=== PATIENT | male | born 1940 | race Caucasian/White ===

== ENCOUNTER 2021-10-06 06:39 | Day surgery (SDC) | payer OTHER ==
[2021-10-06] MEDS ORDERED: CEFAZOLIN/NS 1gm 1 GM/50 ML BAG ONE (06:42)
[2021-10-06] MEDS ORDERED: Ringers Lactate 1,000 ML IV ONE (06:42)
[2021-10-06] MEDS ORDERED: LIDOCAINE 2% MPF 5 ML VIAL ONE (07:04)
[2021-10-06] MEDS ORDERED: FENTANYL CITR 100 MCG/2 ML ONE (07:04)
[2021-10-06] MEDS ORDERED: propofoL 200 MG/20 ML VIAL IV ONE (07:05)
[2021-10-06] MEDS ORDERED: BUPIVACAINE 0.25% PF 10 ML VIAL ONE (07:19)
[2021-10-06 07:57] LABS: BUN Blood Urea Nitrogen 19 mg/dL (7-18); Bicarbonate 26 mmol/L (21-32); Glucose Level 141 mg/dL (74-106); Potassium 3.9 mmol/L (3.5-5.1); Sodium Level 139 mmol/L (136-145)
[2021-10-06] MEDS ORDERED: ONDANSETRON 4 MG/2 ML VIAL ONE (08:34)
[2021-10-06] MEDS ORDERED: KETOROLAC 30 MG/ML INJ ONE (08:34)
[2021-10-06] MEDS ORDERED: SODIUM HYPOCHLORITE 0.25% 473 ML ONE (08:39)
--- NOTE | 2021-10-06 08:51 | P.OP ---
Preoperative diagnosis: LEFT posterior Arm infected sebacous cyst, 3 back cysts Postoperative diagnosis: LEFT posterior Arm infected sebacous cyst, 3 back cysts Primary procedure: Wide Excision of LEFT posterior Arm infected sebacous cyst, 3 back cysts Anesthesia: GETA + Local Estimated blood loss: < 5cc Specimen: LEFT posterior Arm infected sebacous cyst, 3 back left, right, mid upper Findings: 8x5x1.5 cm LEFT arm cyst to tricept muscle, 3 SQ back cysts Complications: None Transferred to: Recovery Room Condition: Good
[2021-10-06 09:28] VITALS: O2SAT 99
[2021-10-06] MEDS ORDERED: HYDROCODONE/APAP 5/325 MG TAB ONE (09:52)
[2021-10-06 10:45] VITALS: BP 134/70; TEMP 98.1
--- NOTE | 2021-10-06 11:10 | OP ---
Date of Procedure: 10/06/2021 Surgeon: Merlin Garcias MD, Preoperative Diagnoses: 1.Left posterior arm infected sebaceous cyst. 2.Infected sebaceous cyst of the upper back x3. Postoperative Diagnoses: 1.Left posterior arm infected sebaceous cyst. 2.Infected sebaceous cyst of the upper back x3. Procedures Performed: Wide local excision of left posterior upper arm infected sebaceous cyst and wi de local excision of three upper back infected sebaceous cysts. Anesthesia: General endotracheal plus local with 0.25% Marcaine. Estimated Blood Loss: Less than 5 mL. Specimen: Left posterior arm sebaceous cyst. Three upper back infected sebaceous cyst, labeled as l eft upper, mid upper, and right upper back. Findings: 1.An 8 cm x 5 cm x 1.5 cm left arm infected sebaceous cyst extending up to the fascia of the triceps muscle. 2.Left upper back infected sebaceous cyst. 3.Mid upper back infected sebaceous cyst 1 cm x 1.5 cm x 1 cm for all of these, right upper back was 1 cm x 1 cm x 1 cm. Complications: None. Disposition: The patient was transferred to recovery room in good condition. Procedure In Detail: After informed was obtained, the patient was brought to the operating room, pre pped and draped in the usual sterile fashion. After adequate anesthesia was achieved, I focused on t he three upper back cyst. All these were anesthetized with 0.25% Marcaine. Elliptical incisions wer e taken around all three of these cysts using a 15 blade down through subcutaneous tissues. Dissecti on continued down using electrocautery to remove the cyst in its entirety. Infected sebaceous materi al was noted. These specimens were sent off and labeled individually at this point. All skin incisi ons at this point were inspected and hemostasis was achieved with electrocautery. The area was copio usly irrigated and closed with a combination of interrupted and vertical mattress sutures with 2-0 ny jerilyn suture with good approximation of the tissues and a sterile dressing placed over top. I then tur paulette my attention to the left posterior arm infected sebaceous cyst, which was approximately 8 cm x 5 cm. An elliptical incision was taken down as this was draining abscess material at this point. Cult ures were sent for both aerobic and anaerobic speciation at this time. I then proceeded to dissect d own circumferentially. There was evidence of multiple prior ruptures as the sebaceous material was e ncased with an abscess material and was partially fluidic. After removing this down through subcutan eous tissues, it extended up to the triceps and posterior deltoid muscle. All necrotic tissue was re moved. The hemostasis was achieved with electrocautery and I irrigated the area copiously at this po int. I, after achieving hemostasis, then packed the wound with Dakin-soaked Kerlix and a sterile harley ssing placed over top. The patient tolerated the procedure without any complication and transferred to PACU in good condition. All counts were correct at the end of the case. CARMEN/GOMEZ Voice ID: [id number] Report ID: [id number]
--- NOTE | 2021-10-06 13:16 | EKG ---
Test Date: 2021-10-06 Test Time: 07:21:39 Java Security Engineer: KELVIN MEASUREMENT RESULTS: Intervals: Rate: 88 MO: 160 QRSD: 76 QT: 348 QTc: 421 [place]: P: 71 MO: 160 QRS: 28 T: 39 INTERPRETIVE STATEMENTS: Normal sinus rhythm Minimal voltage criteria for LVH, may be normal variant ST elevation, consider lateral injury or acute infarct ACUTE [place] Abnormal ECG No previous ECG available for comparison Electronically Signed On 10-06-21 13:16:00 MOVING VAN DRIVER by Gustavo Nevarez
== END 2021-10-06 10:37 | disposition home or self-care (01) ==
LOC: OR 06:39
PROVIDERS: ATTEND Surgery
PROC: 0JB70ZZ Excision of Back Subcutaneous Tissue and Fascia, Open Approach (ICD-10-PCS; 2021-10-06)
PROC: 0JB70ZZ Excision of Back Subcutaneous Tissue and Fascia, Open Approach (ICD-10-PCS; 2021-10-06)
PROC: 0JB70ZZ Excision of Back Subcutaneous Tissue and Fascia, Open Approach (ICD-10-PCS; 2021-10-06)
PROC: 0JBF0ZZ Excision of Left Upper Arm Subcutaneous Tissue and Fascia, Open Approach (ICD-10-PCS; principal; 2021-10-06 07:30)
DX: L72.0 Epidermal cyst (principal); L08.9 Local infection of the skin and subcutaneous tissue, unspecified; Z20.822 Contact with and (suspected) exposure to COVID-19
CPT/HCPCS: 93005; 87070; 80048; 36415; 87205; 88304 ×2; 87075; 11406; 11401 ×3; U0003; J2704; J3010; J0690; J7120; J2405; 88305

== ENCOUNTER 2022-01-08 09:42 | Emergency (ER) | payer OTHER ==
[2022-01-08] MEDS ORDERED: LIDOCAINE 1% W/EPI 1:100,000 MDV 50 ML VIAL ONE (09:59)
--- NOTE | 2022-01-08 10:43 | RAD REPORT ---
EXAM DESCRIPTION: CT - [id number] - 01/08/2022 10:24 am CLINICAL HISTORY: PAINfall, facial laceration, headache, neck pain COMPARISON: No comparisons TECHNIQUE: Axial 5 mm thick images of the head were obtained. Axial 2 mm thick images of the cervic al spine were obtained with sagittal and coronal reconstruction images generated and reviewed. All CT scans are performed using dose optimization technique as appropriate and may include automated exposure control or mA/KV adjustment according to patient size. FINDINGS: No intracranial hemorrhage, mass, edema or acute intracranial finding. No suspicion for ac tonto apache infarction. No cortical edema or sulcal effacement. Mild to moderate for age atrophy present with ventricles in proportion. Chronic ischemic change in the cerebral white matter is mild. Mastoid air cells and paranasal sinuses are clear. No globe or orbit abnormality seen. Soft tissue injury present at the tip of the nose. Nondisplaced nasal bone fracture is suspected. There is significant left dev iation of the nasal septum without acute fracture finding. Cervical body height and alignment are normal. All disc levels from C3-4 through C7-T1 show loss in h eight. Endplate spurring changes are present throughout the same span of vertebrae. Facet joint degen erative changes are present. No fracture or acute bony abnormality. Moderate severity right foraminal stenosis at C2-3 and C3-4. Moderately severe left-side and moderate right-sided foraminal stenosis a t C4-5 and C5-6. Right greater than left significant foraminal stenosis at C6-7. Central canal detail is inherently limited. No paraspinal mass or hematoma. IMPRESSION: No hemorrhage, edema or acute intracranial finding. Soft tissue injury at the tip of the nose with probable nondisplaced nasal bone fracture. Advanced cervical spondylosis changes spanning C3-4 through C6-7. No acute cervical finding. Negative CT cervical spine examination for acute or significant finding.
[2022-01-08 11:01] LABS: Absolute Lymphocytes (CBC) 2.4 K/uL (0.7-4.9); Hematocrit 35.5 % (39.6-49.0); Lymphocytes % 28.7 % (15.3-44.8); RBC Red Blood Cell Count 4.25 M/uL (4.33-5.43)
[2022-01-08 11:03] LABS: Protime INR 1.08
--- NOTE | 2022-01-08 11:13 | RAD REPORT ---
EXAM DESCRIPTION: RAD - Chest Single View - 01/08/2022 11:00 am CLINICAL HISTORY: COUGH COMPARISON: Two view chest December 25 TECHNIQUE: AP portable chest image was obtained 01/08/2022 11:00 am . FINDINGS: Chronic left lung field interstitial opacification again noted. This is not significantly different when adjusting for the AP technique and slightly lower lung volume. Right apical pleural th ickening is present. Right hemithorax volume is decreased relative to the left. The trachea is in the midline. Medial right base opacification present partially obscuring the right heart border. This is similar to the prior imaging. The mass lesion in the lung is possible. Prominent pericardial fat or hiatal hernia can have a similar appearance. No remote imaging available to establish long-term stabi lity. Upper lobe vasculature within normal limits. No measurable pleural effusion and no pneumothorax . No acute bony abnormality seen. No acute aortic findings suspected. IMPRESSION: Chronic interstitial lung pattern not substantially different from short interval Februa 7 imaging. Interstitial infiltrate or edema could be masked in this setting, particularly in the mid to lower ri ght lung field. Mass density along the right heart border could be mass lesion, right middle lobe atelectasis, promin ent pericardial fat, chamber enlargement or even hiatal hernia. No long-term comparison available for the right lung base finding. Follow-up CT chest imaging could b e utilized to excluded mass lesion.
[2022-01-08] MEDS ORDERED: CEFAZOLIN SODIUM 1 GM/VIAL ONE (11:17)
[2022-01-08] MEDS ORDERED: NA CHLORIDE 0.9% 100 ML IV ONE (11:17)
[2022-01-08] MEDS ORDERED: TETANUS & DIPHTHERIA TOX,ADULT 0.5 ML VIAL ONE (11:17)
[2022-01-08 11:30] LABS: Urine Blood Negative (Negative); Urine Glucose Negative (Negative); Urine Protein 1+ (Negative); Urine Specific Gravity 1.025 (1.005-1.030)
[2022-01-08 11:31] LABS: Albumin 2.9 g/dL (3.4-5.0); Bilirubin Direct 0.1 mg/dL (0-0.2); Bilirubin Total 0.3 mg/dL (0.2-1.0); Magnesium 2.2 mg/dL (1.8-2.4); Potassium 3.7 mmol/L (3.5-5.1); Protein, Total 7.4 g/dL (6.4-8.2); Troponin High Sensitivity 6.9 pg/mL (<58.9)
[2022-01-08] MEDS ORDERED: ACETAMINOPHEN 325 MG TABLET ONE (11:41)
--- NOTE | 2022-01-08 11:48 | EDPHYS ---
Physician Documentation [facility] Name: Khang Aguilar Age: 81 yrs Sex: Male : 1940 Arrival Date: 01/08/2022 Time: 09:44 Bed 19 Private MD: ED Physician Reinaldo Gill HPI: 01/08 11:35 This 81 yrs old Male presents to ER via Wheelchair with complaints of Fall ellis Injury, Laceration To Scalp/Face. 11:35 Details of fall: The patient fell from an upright position, while walking. Onset: The ellis symptoms/episode began/occurred just prior to arrival. Associated injuries: The patient sustained injury to the head, nose and mouth, contusion, laceration, painful injury, swelling. Severity of symptoms: At their worst the symptoms were mild, in the emergency department the symptoms are unchanged. The patient has not experienced similar symptoms in the past. Historical: - Allergies: 09:53 No Known Allergies; ph - Immunization history:: Adult Immunizations up to date, Client reports receiving the 2nd dose of the Covid vaccine, Last tetanus immunization: up to date. - Social history:: Smoking status: Patient denies any tobacco usage or history of. ROS: 11:36 Constitutional: Negative for fever, chills, and weight loss, Eyes: Negative for injury, ellis pain, redness, and discharge, Neck: Negative for injury, pain, and swelling, Cardiovascular: Negative for chest pain, palpitations, and edema, Respiratory: Negative for shortness of breath, cough, wheezing, and pleuritic chest pain, Abdomen/GI: Negative for abdominal pain, nausea, vomiting, diarrhea, and constipation, Back: Negative for injury and pain, : Negative for injury, bleeding, discharge, and swelling, MS/Extremity: Negative for injury and deformity, Neuro: Negative for headache, weakness, numbness, tingling, and seizure, Psych: Negative for depression, anxiety, suicide ideation, homicidal ideation, and hallucinations, Allergy/Immunology: Negative for hives, rash, and allergies, Endocrine: Negative for neck swelling, polydipsia, polyuria, polyphagia, and marked weight changes. 11:36 ENT: Positive for nose bleed, rhinorrhea, sinus congestion. Exam: 11:36 Constitutional: This is a well developed, well nourished patient who is awake, alert, ellis and in no acute distress. Eyes: Pupils equal round and reactive to light, extra-ocular motions intact. Lids and lashes normal. Conjunctiva and sclera are non-icteric and not injected. Cornea within normal limits. Periorbital areas with no swelling, redness, or edema. ENT: Nares patent. No nasal discharge, no septal abnormalities noted. Tympanic membranes are normal and external auditory canals are clear. Oropharynx with no redness, swelling, or masses, exudates, or evidence of obstruction, uvula midline. Mucous membranes moist. Neck: Trachea midline, no thyromegaly or masses palpated, and no cervical lymphadenopathy. Supple, full range of motion without nuchal rigidity, or vertebral point tenderness. No Meningismus. Chest/axilla: Normal chest wall appearance and motion. Nontender with no deformity. No lesions are appreciated. Cardiovascular: Regular rate and rhythm with a normal S1 and S2. No gallops, murmurs, or rubs. Normal PMI, no JVD. No pulse deficits. Respiratory: Lungs have equal breath sounds bilaterally, clear to auscultation and percussion. No rales, rhonchi or wheezes noted. No increased work of breathing, no retractions or nasal flaring. Abdomen/GI: Soft, non-tender, with normal bowel sounds. No distension or tympany. No guarding or rebound. No evidence of tenderness throughout. Back: No spinal tenderness. No costovertebral tenderness. Full range of motion. Male : Normal genitalia with no discharge or lesions. Skin: Warm, dry with normal turgor. Normal color with no rashes, no lesions, and no evidence of cellulitis. Neuro: Awake and alert, GCS 15, oriented to person, place, time, and situation. Cranial nerves II-XII grossly intact. Motor strength 5/5 in all extremities. Sensory grossly intact. Cerebellar exam normal. Normal gait. Psych: Awake, alert, with orientation to person, place and time. Behavior, mood, and affect are within normal limits. 11:36 Head/face: Noted is contusion, a laceration(s), that is deep, 2 cm(s), of the lower lip and lower vermilion border, swelling, that is mild, of the nose and mouth. 11:43 ECG was reviewed by the Attending Physician. [facility] Vital Signs: 09:53 BP 161 / 97; Pulse 86; Resp 18; Temp 97.1; Pulse Ox 97% on R/A; ph 11:15 BP 171 / 81; Pulse 85; ll1 12:45 BP 177 / 67; Pulse 81; Resp 17; Pulse Ox 97% on R/A; Pain 5/10; ll1 [place]a Score: 10:12 Eye Response: spontaneous(4). Verbal Response: confused(4). Motor Response: obeys ll1 commands(6). Total: 14. 11:36 Eye Response: spontaneous(4). Verbal Response: oriented(5). Motor Response: obeys ellis commands(6). Total: 15. Trauma Score (Adult): 10:12 Eye Response: spontaneous(1); Verbal Response: confused(1); Motor Response: obeys ll1 commands(2); Systolic BP: > 89 mm Hg(4); Respiratory Rate: 10 to 29 per min(4); Reid Score: 14; Trauma Score: 12 Laceration: 11:36 Wound Repair of 2cm ( 0.8in ) subcutaneous laceration to lower lip. Irregularly ellis shaped.. Distal neuro/vascular/tendon intact. Anesthesia: Local anesthetic administered with 5 mls of 1% lidocaine w/ Epi. Wound prep: Moderate cleansing by me. Skin closed with 1 5-0 Prolene using interrupted sutures and sterile technique. Mucosal layer closed with 3 5-0 Vicryl using interrupted sutures and sterile technique. Dressed with Neosporin. Patient tolerated well. MDM: 10:09 Patient medically screened. ellis 11:36 Differential diagnosis: Contusion of Hematoma on Laceration of Intracranial bleed- ellis Concussion. Differential diagnosis: abrasion, closed head injury, contusion, fracture, laceration, multiple trauma. Data reviewed: vital signs, nurses notes, lab test result(s), EKG, radiologic studies, CT scan, plain films. Data interpreted: nurse monitoring: rate is 86 beats/min, rhythm is regular, Pulse oximetry: on room air is 97 %. Test interpretation: by ED physician or midlevel provider: ECG, plain radiologic studies. Counseling: I had a detailed discussion with the patient and/or guardian regarding: the historical points, exam findings, and any diagnostic results supporting the discharge/admit diagnosis, lab results, radiology results, the need for outpatient follow up, for definitive care, a family practitioner. 01/08 10:19 Order name: Basic Metabolic Panel; Complete Time: 11:34 ellis 01/08 10:19 Order name: CBC with Diff; Complete Time: 11:34 [facility] 01/08 10:19 Order name: LFT's; Complete Time: 11:34 [facility] 01/08 10:19 Order name: Magnesium; Complete Time: 11:34 [facility] 01/08 10:19 Order name: NT PRO-BNP; Complete Time: 11:34 [facility] 01/08 10:19 Order name: PT-INR; Complete Time: 11:34 [facility] 01/08 10:19 Order name: Troponin HS; Complete Time: 11:34 [facility] 01/08 10:19 Order name: XRAY Chest (1 view); Complete Time: 11:34 [facility] 01/08 10:19 Order name: CT Head C Spine; Complete Time: 11:34 [facility] 01/08 10:46 Order name: CT Chest For PE Angio [facility] 01/08 11:30 Order name: Urine Dipstick-Ancillary; Complete Time: 11:34 EDAL 01/08 10:19 Order name: EKG; Complete Time: 10: [facility] 01/08 10:19 Order name: Cardiac monitoring; Complete Time: 10: [facility] 01/08 10:19 Order name: EKG - Nurse/Tech; Complete Time: 10: [facility] 01/08 10:19 Order name: IV Saline Lock; Complete Time: : [facility] 01/08 10:19 Order name: Labs collected and sent; Complete Time: : ellis 01/08 10:19 Order name: O2 Per Protocol; Complete Time: :01/08 10:19 Order name: O2 Sat Monitoring; Complete Time: : ellis 01/08 10:19 Order name: Dressing - Wound; Complete Time: : ellis 01/08 10:19 Order name: Gloves, Sterile; Complete Time: : ellis 01/08 10:19 Order name: Prolene, Sutures; Complete Time: : [facility] 01/08 10:19 Order name: Setup Suture Tray; Complete Time: : ellis 01/08 10:19 Order name: Vicryl, Sutures; Complete Time: : ellis 01/08 10:20 Order name: Ice pack; Complete Time: 10:01/08 10:20 Order name: Urine Dipstick-Ancillary (obtain specimen); Complete Time: 11:32 ellis EC:43 Rate is 79 beats/min. Rhythm is regular. QRS [place] is Normal. LA interval is normal. QRS ellis interval is normal. QT interval is normal. No Q waves. T waves are Normal. No ST changes noted. Clinical impression: NSR w/ Non-specific ST/T Changes, LVH, and No evidence of ischemia. Interpreted by me. Reviewed by me. 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 Exp: ll1 04/07/2023. Lot #: [id number]. } Route: IM; Site: right deltoid; 12:55 Follow up: Response: No adverse reaction ll1 11:40 Drug: Tylenol 650 mg Route: PO; ph 12:55 Follow up: Response: No adverse reaction ll1 12:13 Drug: LevOfloxacin 500 mg Route: PO; iw 12:55 Follow up: Response: No adverse reaction ll1 Disposition Summary: 01/08/22 11:48 Discharge Ordered Location: Home ellis Problem: new ellis Symptoms: have improved ellis Condition: Stable ellis Diagnosis - Fall on same level, unspecified ellis - Laceration without foreign body of other part of head - lip, lower ellis - Laceration without foreign body of right hand - avulsion ellis - Malignant neoplasm of lower lobe, right bronchus or lung ellis - Malignant pleural effusion - right ellis Followup: ellis - With: Private Physician - When: 2 - 3 days - Reason: Recheck today's complaints, Continuance of care, Re-evaluation by your physician Followup: ellis - With: Valentino Chew MD - When: 2 - 3 days - Reason: Recheck today's complaints, Re-evaluation by your physician Followup: ellis - With: Gerson Mccurdy MD - When: 2 - 3 days - Reason: Recheck today's complaints, Re-evaluation by your physician Discharge Instructions: - Discharge Summary Sheet ellis - Head Injury, Adult ellis - Fall Prevention in the Home, Adult ellis - Laceration Care, Adult ellis - Mouth Laceration ellis - Pleural Effusion ellis - Mouth Laceration, [id number] ellis - Laceration Care, Adult, [id number] ellis - Head Injury, Adult, [id number] ellis - Lung Mass [facility] Forms: - Medication Reconciliation Form ellis - Thank You Letter ellis - Antibiotic Education [facility] - Prescription Opioid Use [facility] Prescriptions: - levofloxacin 500 mg Oral Tablet - take 1 tablet by ORAL route once daily for 7 days; 7 tablet; Refills: 0, ellis Product Selection Permitted Signatures: Dispatcher [employer] EDReinaldo Orozco MD MD cha Williams, Irene RN Fabiana Bradford RN RN Meagan Oliver RN RN ll1
--- NOTE | 2022-01-08 11:48 | ER ---
Nurse's Notes [facility] Name: Khang Aguilar Age: 81 yrs Sex: Male : 1940 Arrival Date: 01/08/2022 Time: 09:44 Bed 19 Private MD: Diagnosis: Fall on same level, unspecified;Laceration without foreign body of other part of head-lip, lower;Laceration without foreign body of right hand-avulsion;Malignant neoplasm of lower lobe, right bronchus or lung;Malignant pleural effusion-right Presentation: 01/08 09:50 Chief complaint: Bystander saw pt trip and fall in parking lot. Bleeding to nose, ph laceration to lower lip, abrasion to R palm, denies LOC, denies blood thinner use, Pt asked " Where am I?" Informed pt that he was at ED, when asked about why he had come to the hospital today pt states, " Well you know, I don't really know why I was here.". Care prior to arrival: None. Mechanism of Injury: Fall from standing position. Trauma event details: Injury occurred in the [facility], Injury occurred: hospital parking lot. 09:50 Acuity: VANIA 2 ph 09:50 Method Of Arrival: Wheelchair ph 10:13 Coronavirus screen: Vaccine status: Patient reports receiving the 2nd dose of the covid ll1 vaccine. Client denies travel out of the [place] in the last 14 days. At this time, the client does not indicate any symptoms associated with coronavirus-19. Ebola Screen: Patient denies travel to an Ebola-affected area in the 21 days before illness onset. Initial Sepsis Screen: Does the patient meet any 2 criteria? No. Patient's initial sepsis screen is negative. Does the patient have a suspected source of infection? Yes: Skin breakdown/wound. Risk Assessment: Do you want to hurt yourself or someone else? Patient reports no desire to harm self or others. Onset of symptoms was January 08, 2022. Trauma Activation: Alert Physician: ED Physician; Name: ; Notified At: ; Arrived At: Physician: General Surgeon; Name: ; Notified At: ; Arrived At: Physician: Radiology; Name: ; Notified At: ; Arrived At: Physician: Respiratory; Name: ; Notified At: ; Arrived At: Physician: Lab; Name: ; Notified At: ; Arrived At: Historical: - Allergies: 09:53 No Known Allergies; ph - Immunization history:: Adult Immunizations up to date, Client reports receiving the 2nd dose of the Covid vaccine, Last tetanus immunization: up to date. - Social history:: Smoking status: Patient denies any tobacco usage or history of. Screenin:11 Abuse screen: Denies threats or abuse. Nutritional screening: No deficits noted. ll1 Tuberculosis screening: No symptoms or risk factors identified. Fall Risk Secondary diagnosis (15 points) confused. Ambulatory Aid- Crutches/Cane/Walker (15 pts). Gait- Impaired (20 pts.). Mental Status- Overestimates/Forgets Limitations (15 pts.). Total Bower Fall Scale indicates High Risk Score (45 or more points). Fall prevention measures have been instituted. Side Rails Up X 2 Placed Close to Nursing Station Frequent Obs/Assessments Occuring As available patient and family educated on Fall Prevention Program and Strategies. Primary Survey: 10:12 NO uncontrolled hemorrhage observed. A: The patient is alert. Airway: patent, No ll1 supplemental oxygen in use on arrival. Oral cavity: clear, Trachea midline. Breathing/Chest: Respiratory pattern: regular, Respiratory effort: spontaneous, unlabored, Breath sounds: clear. Circulation: Pulses: palpable right radial artery, right dorsalis pedis artery, left radial artery and left dorsalis pedis artery. Disability Alert. Exposure/Environment: There is no evidence of uncontrolled external bleeding. A warming method has been applied: A warm blanket has been provided to the patient. 12:54 Reassessment Breathing/Chest Respiratory pattern Regular Respiratory effort Spontaneous ll1 Unlabored. Assessment: 10:08 General: Appears distressed, Behavior is calm, cooperative, confused. Pain: Complains ll1 of pain in face Quality of pain is described as aching. Neuro: Reports cant remember why he fell, or why he was coming to the hospital. . Cardiovascular: No deficits noted. Respiratory: No deficits noted. GI: denies N/V/D. Derm: laceration right side of lower lip. <2 cm laceration to inner lip. <1 cm laceration right lower outer lip. Abrasions to nose and R hand. No tenderness to hands although there is bruising to thumb areas. 11:05 Reassessment: No changes from previously documented assessment. Patient and/or family ll1 updated on plan of care and expected duration. Pain level reassessed. Patient is alert, oriented x 3, equal unlabored respirations, skin warm/dry/pink. 12:00 Reassessment: No changes from previously documented assessment. Patient and/or family ll1 updated on plan of care and expected duration. Pain level reassessed. Patient is alert, oriented x 3, equal unlabored respirations, skin warm/dry/pink. 12:50 Reassessment: No changes from previously documented assessment. Patient and/or family ll1 updated on plan of care and expected duration. Pain level reassessed. Patient is alert, oriented x 3, equal unlabored respirations, skin warm/dry/pink. Vital Signs: 09:53 BP 161 / 97; Pulse 86; Resp 18; Temp 97.1; Pulse Ox 97% on R/A; ph 11:15 BP 171 / 81; Pulse 85; ll1 12:45 BP 177 / 67; Pulse 81; Resp 17; Pulse Ox 97% on R/A; Pain 5/10; ll1 Reid Coma Score: 10:12 Eye Response: spontaneous(4). Verbal Response: confused(4). Motor Response: obeys ll1 commands(6). Total: 14. 11:36 Eye Response: spontaneous(4). Verbal Response: oriented(5). Motor Response: obeys ellis commands(6). Total: 15. Trauma Score (Adult): 10:12 Eye Response: spontaneous(1); Verbal Response: confused(1); Motor Response: obeys ll1 commands(2); Systolic BP: > 89 mm Hg(4); Respiratory Rate: 10 to 29 per min(4); Reid Score: 14; Trauma Score: 12 ED Course: 09:44 Patient arrived in ED. mr 09:48 Meagan Castaneda, RN is Primary Nurse. ll1 09:48 Arm band placed on Patient placed in an exam room, on a stretcher. ll1 09:53 Triage completed. ph 10:09 Reinaldo Gill MD is Attending Physician. ellis 10:13 Assist provider with laceration repair. ll1 10:14 Patient has correct armband on for positive identification. Bed in low position. Call ll1 light in reach. Side rails up X2. Pulse ox on. NIBP on. 10:14 Patient maintains SpO2 saturation greater than 95% on room air. Thermoregulation: warm ll1 blanket given to patient. 10:24 CT Head C Spine In Process Unspecified. EDMS 11:00 XRAY Chest (1 view) In Process Unspecified. EDMS 11:27 CT Chest For PE Angio In Process Unspecified. EDMS 11:48 Valentino Chew MD is Referral Physician. ellis 11:51 Gerson Mccurdy MD is Referral Physician. ellis 12:54 IV discontinued, intact, bleeding controlled, No redness/swelling at site. Pressure ll1 dressing applied. Administered Medications: 10:00 Drug: Lidocaine-Epinephrine -1%: (1:100,000) 5 ml Volume: 20 ml; Route: Infiltration; ll1 10:23 Follow up: Response: No adverse reaction ll1 11:40 Drug: Ancef (cefazolin) 1 grams Route: IVPB; Site: right forearm; ll1 12:50 Follow up: Response: No adverse reaction; IV Status: Completed infusion; IV Intake: ll1 100ml 11:40 Drug: Tetanus-Diphtheria Toxoid Adult 0.5 ml {Medical Records Analyst: [employer]. Exp: ll1 04/07/2023. Lot #: [id number]. } Route: IM; Site: right deltoid; 12:55 Follow up: Response: No adverse reaction ll1 11:40 Drug: Tylenol 650 mg Route: PO; ph 12:55 Follow up: Response: No adverse reaction ll1 12:13 Drug: LevOfloxacin 500 mg Route: PO; iw 12:55 Follow up: Response: No adverse reaction ll1 Intake: 12:50 IV: 100ml; Total: 100ml. ll1 12:55 PO: 150ml; Total: 250ml. ll1 Output: 12:55 Urine: 500ml; Total: 500ml. ll1 Outcome: 11:48 Discharge ordered by . ellis 12:51 Patient left the ED. ll1 12:54 Discharged to home ambulatory. ll1 12:54 Condition: stable 12:54 Discharge instructions given to patient, family, Instructed on discharge instructions, follow up and referral plans. medication usage, wound care, Demonstrated understanding of instructions, follow-up care, medications, wound care, Prescriptions given X 1. 12:55 Patient's length of stay in the Emergency Department was greater than 2 hours. ll1 Signatures: Dispatcher [employer] Reinaldo Brown MD MD cha Rivera, Gemini Fry, Fabiana Bradford RN, RN RN ph Lewis, Lynsay, RN RN 1
--- NOTE | 2022-01-08 11:50 | RAD REPORT ---
EXAM DESCRIPTION: CT - Chest For Pe Angio - 01/08/2022 11:26 am CLINICAL HISTORY: Chest pain;Dyspnea COMPARISON: Chest Single View dated 01/08/2022 TECHNIQUE: Dynamically enhanced 3 mm thick images of the chest were obtained during administration o f approximately 150mL Isovue 370 IV contrast. Coronal and oblique MIP reconstruction images were gene rated and reviewed. Exam utilizes a protocol to evaluate the pulmonary arterial tree. All CT scans are performed using dose optimization technique as appropriate and may include automated exposure control or mA/KV adjustment according to patient size. FINDINGS: A small linear filling defect is present in a segmental branch of the right lower lobe. No other pulmonary emboli identifiable. The small branch pulmonary embolism extends into a large lobula stephanie irregular mass lesion in the volume reduced right lower lobe. The more superior aspect of this la rge mass complex is 5.5 cm AP x 5.6 cm TR. At the right posterior gutter of the mass complex is 4.6 c m AP x 8.3 cm TR. The majority of this lower lobe mass complex is believed to be lung malignancy. Pos terior gutter opacification may be a combination of mass and atelectasis. Postobstructive infiltrate is possible as well. The right upper lobe and right middle lobe are clear of any mass or infiltrate. Borderline bronchiectasis changes are present in the lung mccollum. Small right pleural effusion is pre sent possibly loculated. The aorta as imaged shows no acute or suspicious finding. No pericardial thickening or effusion. No infiltrate or mass in the lung parenchyma. No pleural effusion or pleural thickening. No mediastinal or hilar suspicious masses. No chest wall masses or abnormal axillary lymphadenopathy. IMPRESSION: Large malignant mass complex in the right lower lobe as detailed with associated small l oculated pleural effusion and posterior pleural thickening. Posterior gutter opacification could be postobstructive pneumonia, atelectasis and/ or mass combinati on. Small segmental branch pulmonary embolus partially filling the vessel lumen. This vessel extends into the right lower lobe mass complex. No other significant or suspicious findings.
[2022-01-08] MEDS ORDERED: levoFLOXacin 250 MG TAB ONE (12:07)
[2022-01-08 13:20] VITALS: BP 161/97; TEMP 97.1; O2SAT 97
--- NOTE | 2022-01-09 07:25 | EKG ---
Test Date: 2022-01-08 Test Time: 10:37:50 Ged Instructor: LML MEASUREMENT RESULTS: Intervals: Rate: 79 IL: 114 QRSD: 96 QT: 398 QTc: 456 Harrell: P: 79 IL: 114 QRS: 14 T: -5 INTERPRETIVE STATEMENTS: Normal sinus rhythm Minimal voltage criteria for LVH, may be normal variant Nonspecific ST abnormality Abnormal ECG Compared to ECG 10/06/2021 07:21:39 Myocardial infarct finding no longer present ST (T wave) deviation still present Electronically Signed On 01-09-22 07:22:46 KEY HOLDER by Gustavo Nevarez
== END 2022-01-08 12:51 | disposition home or self-care (01) ==
LOC: ER 09:42
PROC: 0CQ1XZZ Repair Lower Lip, External Approach (ICD-10-PCS; principal; 2022-01-08)
DX: S01.511A Laceration without foreign body of lip, initial encounter (principal); S61.411A Laceration without foreign body of right hand, initial encounter; C34.31 Malignant neoplasm of lower lobe, right bronchus or lung; J91.0 Malignant pleural effusion; W18.30XA Fall on same level, unspecified, initial encounter; Z23 Encounter for immunization
CPT/HCPCS: 96365; 93005; 85025; 80048; 36415; 83735; 85610; 80076; 81003; 84484; 83880; 70450; 72125; 71275; 71045; 90471; 90714; 99284; 12011; Q9967; J0690

== ENCOUNTER 2022-01-16 11:34 | Emergency (ER) | payer OTHER ==
--- NOTE | 2022-01-16 11:47 | EDPHYS ---
Physician Documentation [facility] Name: Khang Aguilar Age: 81 yrs Sex: Male : 1940 Arrival Date: 01/16/2022 Time: 11:35 Bed Waiting Private MD: ED Physician Robby Shields HPI: 01/16 15:04 This 81 yrs old Male presents to ER via Ambulatory with complaints of Suture Removal. kb 15:04 The patient has sutures on the chin. Previous treatment: The patient was initially kb treated. Sutures/brandy progress: The patient has no c/o's. The wound is well-healing with no redness, swelling, discharge, or dehiscence reported. The patient has not experienced similar symptoms in the past. The patient has not recently seen a physician. Historical: - Allergies: 11:46 No Known Allergies; jl7 - PMHx: 11:46 Hypertensive disorder; jl7 - Immunization history:: Client reports receiving the 2nd dose of the Covid vaccine. - Social history:: Smoking status: Patient denies any tobacco usage or history of. ROS: 15:01 Constitutional: Negative for fever, chills, and weight loss. kb 15:01 Skin: Positive for of the chin, sutures in place. 15:01 All other systems are negative. Exam: 15:03 Constitutional: This is a well developed, well nourished patient who is awake, alert, kb and in no acute distress. Head/Face: Normocephalic, atraumatic. ENT: Moist Mucous membranes Respiratory: Respirations even and unlabored. No increased work of breathing. Talking in full sentences MS/ Extremity: Pulses equal, no cyanosis. Neurovascular intact. Full, normal range of motion. Neuro: Awake and alert, GCS 15, oriented to person, place, time, and situation. Moves all extremities. Normal gait. Psych: Awake, alert, with orientation to person, place and time. Behavior, mood, and affect are within normal limits. 15:03 Skin: Wound recheck: Suture laceration closure: the wound is healing well, the edges are well approximated, no evidence of dehiscence, no drainage, no erythema, no swelling. Vital Signs: 11:44 BP 126 / 82; Pulse 79; Resp 15; Temp 99; Pulse Ox 96% ; Pain 0/10; jl7 Procedures: 15:01 Suture/Staple removal: Removed 1 sutures, from chin, site appears well healed, Patient kb tolerated well. MDM: 11:43 Patient medically screened. kb 15:01 Data reviewed: vital signs, nurses notes. Data interpreted: Pulse oximetry: on room air kb is 96 %. Interpretation: normal. Counseling: I had a detailed discussion with the patient and/or guardian regarding: the historical points, exam findings, and any diagnostic results supporting the discharge/admit diagnosis, the need for outpatient follow up, a family practitioner, to return to the emergency department if symptoms worsen or persist or if there are any questions or concerns that arise at home. Administered Medications: No medications were administered Disposition Summary: 01/16/22 11:46 Discharge Ordered Location: Home kb Condition: Stable kb Diagnosis - Encounter for removal of sutures kb Followup: kb - With: Emergency Department - When: As needed - Reason: Worsening of condition Followup: kb - With: Private Physician - When: 2 - 3 days - Reason: Recheck today's complaints, Continuance of care, Re-evaluation by your physician Discharge Instructions: - Discharge Summary Sheet kb - Suture Removal, Care After kb Forms: - Medication Reconciliation Form kb - Thank You Letter kb - Antibiotic Education kb - Prescription Opioid Use kb Signatures: Joanna Myles, SUMEET-C LONG WINDER TENDER-Karan Burton RN RN jl7 Corrections: (The following items were deleted from the chart) 15:03 15:01 Skin: Positive for of the chin, kb kb
--- NOTE | 2022-01-16 11:47 | ER ---
Nurse's Notes [facility] Name: Khang Aguilar Age: 81 yrs Sex: Male : 1940 Arrival Date: 01/16/2022 Time: 11:35 Bed Waiting Private MD: Diagnosis: Encounter for removal of sutures Presentation: 01/16 11:44 Chief complaint: Patient states: One suture distal to lower lip. Coronavirus screen: At jl this time, the client does not indicate any symptoms associated with coronavirus-19. Ebola Screen: No symptoms or risks identified at this time. Initial Sepsis Screen: Does the patient meet any 2 criteria? No. Patient's initial sepsis screen is negative. Does the patient have a suspected source of infection? No. Patient's initial sepsis screen is negative. Risk Assessment: Do you want to hurt yourself or someone else? Patient reports no desire to harm self or others. Onset of symptoms was January 08, 2022. 11:44 Method Of Arrival: Ambulatory [facility] 11:44 Acuity: VANIA 4 jl7 Triage Assessment: 11:46 General: Appears in no apparent distress. uncomfortable, Behavior is calm, cooperative, jl7 appropriate for age. Pain: Denies pain. Neuro: Level of Consciousness is awake, alert, obeys commands, Oriented to person, place, time, situation. Cardiovascular: Patient's skin is warm and dry. Respiratory: Airway is patent Respiratory effort is even, unlabored, Respiratory pattern is regular, symmetrical. Derm: Skin is pink, warm \T\ dry. Historical: - Allergies: 11:46 No Known Allergies; jl7 - PMHx: 11:46 Hypertensive disorder; jl7 - Immunization history:: Client reports receiving the 2nd dose of the Covid vaccine. - Social history:: Smoking status: Patient denies any tobacco usage or history of. Screenin:47 Abuse screen: Denies threats or abuse. Denies injuries from another. Nutritional jl7 screening: No deficits noted. Tuberculosis screening: No symptoms or risk factors identified. Fall Risk None identified. Assessment: 11:47 Reassessment: MARY Marshall in triage for suture removal. jl7 Vital Signs: 11:44 BP 126 / 82; Pulse 79; Resp 15; Temp 99; Pulse Ox 96% ; Pain 0/10; jl7 ED Course: 11:35 Patient arrived in ED. as 11:43 [facility] Myles F[facility]C [facility]. kb 11:43 Robby Shields MD is Attending Physician. kb 11:46 Triage completed. jl7 11:46 Arm band placed on right wrist. jl7 11:47 Patient has correct armband on for positive identification. jl7 11:47 No provider procedures requiring assistance completed. Patient did not have IV access jl7 during this emergency room visit. Administered Medications: No medications were administered Outcome: 11:46 Discharge ordered by . kb 11:47 Discharged to home ambulatory. jl7 11:47 Condition: stable 11:47 Discharge instructions given to patient, Instructed on discharge instructions, follow up and referral plans. Demonstrated understanding of instructions, follow-up care. 11:48 Patient left the ED. jl7 Signatures: Joanna Myles FNP-C FNP-Iva Morales Jahala, RN RN jl7
[2022-01-16 12:09] VITALS: BP 126/82; TEMP 99; O2SAT 96
== END 2022-01-16 11:48 | disposition home or self-care (01) ==
LOC: ER 11:34
DX: Z48.02 Encounter for removal of sutures (principal)
CPT/HCPCS: 99281

== ENCOUNTER 2022-02-02 08:04 | Day surgery (SDC) | payer OTHER ==
[2022-02-02] MEDS ORDERED: Ringers Lactate 1,000 ML IV ONE (08:45)
[2022-02-02 09:16] VITALS: BMI 22.2
[2022-02-02] MEDS ORDERED: NALOXONE 0.4 MG/ML VIAL ONE (09:46)
[2022-02-02] MEDS ORDERED: MIDAZOLAM HCL 2 MG/2 ML INJ ONE (09:46)
[2022-02-02] MEDS ORDERED: FENTANYL CITR 100 MCG/2 ML ONE (09:47)
[2022-02-02] MEDS ORDERED: FLUMAZENIL 0.1 MG/ML (5 mL VIAL) IV ONE ×2 (09:51→09:53)
--- NOTE | 2022-02-02 13:39 | RAD REPORT ---
EXAM DESCRIPTION: CT - Lung Biopsy Perc w/CT - 02/02/2022 11:22 am CLINICAL HISTORY: LUNG MASS BIOPSY COMPARISON: Chest For Pe Angio dated 01/08/2022; Ct Skull/Thigh dated 01/25/2022 TECHNIQUE: Patient presents for image guided biopsy of large lobulated mass in the right lower lobe with abnormal FDG uptake on recent PET-CT scan. The percutaneous lung biopsy procedure, risks and alternatives were discussed with the patient in det ail. After answering all questions both oral and written consent were obtained. Time-out procedure wa s performed. Patient PT/INR/ platelet values were within normal limits. Patient had no contraindicate d allergy or medication history. Patient has prior PET-CT and diagnostic CT images were reviewed. There is a large lobulated mass in t he posterior right lung base. There is intervening atelectatic lung between the chest wall and the ma ss. Small amount of pleural fluid is present and there is posterior pleural thickening. IV access and physiologic monitors were in place. Patient was monitored throughout the procedure by [facility] personnel. After obtaining consent, the patient was pre-medicated with Versed at 1.0 milligram s IV and fentanyl 100 micrograms IV. Patient was placed in the prone position on the CT table. Preliminary imaging was obtained and show t he lobulated mass with intervening atelectatic lung. Access site was selected to allow transit of the biopsy needle through the atelectatic lung reducing the likelihood of pneumothorax. Positioning was guided by the abnormal PET activity within the mass. The skin was prepped and draped in the usual sterile fashion. Skin and deeper tissues were anesthetiz ed with 1% lidocaine. A 17 gauge introducer needle was advanced and placed at the posterior margin of the mass. A 2 centimeter core biopsy was obtained. On visual inspection the obtained tissue was necr otic with little solid tissue obtained. Needle was repositioned and angled to obtain sampling of diff erent portions of the large lobulated mass. There were 5 additional core biopsies obtained only 1 of which showed a solid core of tissue. This solid core may have been atelectatic lung at the posterior lung -mass interface. A total of 6 biopsy samples were obtained. After 6 core samples of mostly necrotic tissue, additional sampling was not felt to likely yield bett er result. The introducer needle was withdrawn. Direct pressure was applied to the puncture site and sterile bandage placed. Post biopsy imaging showed no pneumothorax and no measurable hemorrhage. Patient tolerated procedure well without complication. Patient indicated no painter helper distress at the c ompletion of the procedure. Vital signs were stable throughout the procedure. The patient was transfe rred back to the same day surgical area for postprocedure monitoring. Conscious sedation time was 40 minutes. IMPRESSION: CT-guided biopsy was performed of the large lobulated mass in the posterior right lower lobe. As detailed above, the 6 core biopsy samples yielded necrotic material with only 1 solid core that ma y be more atelectatic lung parenchyma than tumor mass. If the final pathology is nondiagnostic for tumor, repeat biopsy may be needed either with repeat per cutaneous biopsy or bronchoscopic approach.
[2022-02-02 13:44] VITALS: O2SAT 99
--- NOTE | 2022-02-02 14:12 | RAD REPORT ---
EXAM DESCRIPTION: RAD - Chest Pa And Lat (2 Views) - 02/02/2022 2:07 pm CLINICAL HISTORY: post biopsy to rule out pneumothorax Chest pain. COMPARISON: Chest Single View dated 01/08/2022; Chest Pa And Lat (2 Views) dated 12/25/2021; Chest For Pe Angio dated 01/08/2022 FINDINGS: Emphysematous lung mccollum are noted. Moderate sized mass in the right lung base is present . No postprocedure pneumothorax seen. The heart is normal in size. IMPRESSION: No postprocedure pneumothorax is seen.
[2022-02-02 14:48] VITALS: BP 155/81; TEMP 98.1
== END 2022-02-02 14:43 | disposition home or self-care (01) ==
LOC: DS 08:04
PROVIDERS: ATTEND Internal Medicine Hematology & Oncology
PROC: 0BDK4ZX Extraction of Right Lung, Percutaneous Endoscopic Approach, Diagnostic (ICD-10-PCS; principal; 2022-02-02)
DX: C34.31 Malignant neoplasm of lower lobe, right bronchus or lung (principal); J90 Pleural effusion, not elsewhere classified
CPT/HCPCS: 32408; 36415; 88305; 85730; 77012; 71046; J2250; J3010; J7120; J2310

== ENCOUNTER 2023-09-27 14:40 | Emergency (ER) | payer OTHER ==
[2023-09-27] MEDS ORDERED: LIDOCAINE 2% MPF 5 ML VIAL ONE (15:16)
--- NOTE | 2023-09-27 15:57 | RAD REPORT ---
EXAM DESCRIPTION: CT - Head Brain Wo Cont - 09/27/2023 3:11 pm CLINICAL HISTORY: fall, head injury COMPARISON: No comparisons TECHNIQUE: Noncontrast head CT images were obtained without IV contrast. Multiplanar reformats were generated and reviewed. All CT scans are performed using dose optimization technique as appropriate and may include automated exposure control or mA/KV adjustment according to patient size. FINDINGS: No intracranial hemorrhage, mass, or edema. Midline structures are unremarkable. Normal ventricular caliber for age. Mild periventricular and deep white matter hypodensities, nonspecific, but suggestive of chronic smal l vessel ischemic changes. Lee-white matter differentiation is preserved, without evidence of acute infarct. No abnormal extra-axial fluid collections. Mastoid air cells and visualized portions of the paranasal sinuses are clear. No acute bony findings. IMPRESSION: No evidence of an acute intracranial process.
--- NOTE | 2023-09-27 16:03 | EDPHYS ---
Physician Documentation [facility] Name: Khang Aguilar Age: 83 yrs Sex: Male : 1940 Arrival Date: 09/27/2023 Time: 14:40 Bed 8 Private MD: ED Physician Goldy Hooper HPI: 09/27 15:07 This 83 yrs old Male presents to ER via Ambulatory with complaints of Fall Injury, Head rn Injury Without LOC-Adult, Laceration To Head. 15:07 Details of fall: The patient fell from an upright position, while standing. Onset: The rn symptoms/episode began/occurred this morning. Associated injuries: The patient sustained injury to the head, contusion, laceration. Severity of symptoms: At their worst the symptoms were mild, in the emergency department the symptoms are unchanged. The patient has not experienced similar symptoms in the past. Patient reports at about 830 this morning was walking, tripped and stumbled, fell forward and hit forehead on ground. No LOC. No vomiting. No seizure. Denies any blood thinners. Initially put Neosporin on wound after cleaning it but later started bleeding which prompted him to come in for evaluation. Reports mild headache. No other injury noted.. Historical: - Allergies: 14:50 No Known Allergies; iw - PMHx: 14:50 Hypertensive disorder; iw - Immunization history:: Adult Immunizations up to date. - Family history:: not pertinent. - Social history:: Smoking status: Patient denies any tobacco usage or history of. - Hospitalizations: : No recent hospitalization is reported. ROS: 15:07 Constitutional: Negative for fever, chills, and weight loss, Eyes: Negative for injury, rn pain, redness, and discharge, Neck: Negative for injury, pain, and swelling, Cardiovascular: Negative for chest pain, palpitations, and edema, Respiratory: Negative for shortness of breath, cough, wheezing, and pleuritic chest pain, Abdomen/GI: Negative for abdominal pain, nausea, vomiting, diarrhea, and constipation, Back: Negative for injury and pain, MS/Extremity: Negative for injury and deformity, Skin: Positive for forehead laceration Neuro: Positive for headache Exam: 15:07 Constitutional: This is a well developed, well nourished patient who is awake, alert, rn and in no acute distress. Head/Face: Normocephalic, upper of right brow there is a superficial and angulated laceration that measures approximately 5 cm. No foreign body. No active bleeding. Mild depression underneath. Eyes: Pupils equal round and reactive to light, extra-ocular motions intact. Neck: No midline cervical tenderness Chest/axilla: Normal chest wall appearance and motion. Nontender with no deformity. No lesions are appreciated. Cardiovascular: Regular rate and rhythm. No pulse deficits. Respiratory: No increased work of breathing, no retractions or nasal flaring. Abdomen/GI: Soft, non-tender MS/ Extremity: Pulses equal, no cyanosis. Neurovascular intact. Full, normal range of motion. Equal circumference. Neuro: Awake and alert, GCS 15 Vital Signs: 14:50 BP 123 / 86; Pulse 91; Resp 16; Temp 98.4; Pulse Ox 100% on R/A; Weight 47.63 kg; iw Height 5 ft. 6 in. ; 15:15 BP 150 / 85; Pulse 86; Pulse Ox 100% ; tm6 14:50 Body Mass Index 16.95 (47.63 kg, 167.64 cm) iw Laceration: 15:55 Wound Repair of 5cm ( 2.0in ) subcutaneous laceration to right forehead. Distal rn neuro/vascular/tendon intact. Anesthesia: Regional Block with 3 mls of 1% lidocaine. Wound prep: Extensive cleansing by nurse by me, Wound irrigation by nurse, Wound explored extensively. Skin closed with 5 5-0 fast absorbing gut using interrupted sutures and sterile technique. Dressed with steri-strips. Patient tolerated well. MDM: 14:49 Patient medically screened. rn 15:55 Differential diagnosis: abrasion, closed head injury, contusion, fracture. Data rn reviewed: vital signs, nurses notes, radiologic studies, CT scan, and as a result, I will discharge patient. Counseling: I had a detailed discussion with the patient and/or guardian regarding the historical points, exam findings, and any diagnostic results supporting the discharge/admit diagnosis. 15:59 Special discussion: Based on the patient's history, exam and DX evaluation, there is no rn indication for emergent intervention or inpatient TX. It is understood by the patient/guardian that if the SXs persist or worsen they need to return immediately for re-evaluation. I discussed with the patient/guardian in detail that at this point there is no indication for admission to the hospital. It is understood, however, that if the symptoms persist or worsen the patient needs to return immediately for re-evaluation. ED course: CT head negative without acute traumatic findings, wound cleaned and sutured. Tolerated well. Will DC home with return precautions. Absorbable sutures placed so will not need to return. 09/27 14:58 Order name: CT Head Brain wo Cont; Complete Time: 15:58 rn 09/27 14:58 Order name: Suture Tray at Bedside; Complete Time: 15: rn Administered Medications: 15:52 Drug: Lidocaine Infiltration (2 %) 1 vials 5 ml Infiltration once; to bedside Volume: 5 tm6 ml; Route: Infiltration; Disposition Summary: 09/27/23 16:02 Discharge Ordered Notes: Location: Home rn Problem: new rn Symptoms: have improved rn Condition: Stable rn Diagnosis - Unspecified injury of head, initial encounter rn - Laceration without foreign body of other part of head rn Followup: rn - With: Private Physician - When: As needed - Reason: Recheck today's complaints, Re-evaluation by your physician Discharge Instructions: - Discharge Summary Sheet rn - Head Injury, Adult rn - Laceration Care, Adult rn Forms: - Medication Reconciliation Form rn - Thank You Letter rn - Antibiotic government affairs fellow - Prescription Opioid Use rn - Patient Portal Instructions rn - Leadership Thank You Letter rn Signatures: Dispatcher [employer] Gemini De La Garza, RN Goldy Spangler MD MD rn Masterson, Tawney, RN RN tm6
--- NOTE | 2023-09-27 16:03 | ER ---
Nurse's Notes [facility] Name: Khang Aguilar Age: 83 yrs Sex: Male : 1940 Arrival Date: 09/27/2023 Time: 14:40 Bed 8 Private MD: Diagnosis: Unspecified injury of head, initial encounter;Laceration without foreign body of other part of head Presentation: 09/27 14:47 Chief complaint: Patient states: pants got caught on edge of door and he fell, he fell iw forward and hit his head on laminate floor, denies LOC, not on blood thinners, laceration to right forehead, thinks his glasses cut him. 14:51 Coronavirus screen: At this time, the client does not indicate any symptoms associated iw with coronavirus-19. Ebola Screen: Patient negative for fever greater than or equal to 101.5 degrees Fahrenheit, and additional compatible Ebola Virus Disease symptoms Patient denies exposure to infectious person. Patient denies travel to an Ebola-affected area in the 21 days before illness onset. No symptoms or risks identified at this time. Initial Sepsis Screen: Does the patient meet any 2 criteria? No. Patient's initial sepsis screen is negative. Does the patient have a suspected source of infection? No. Patient's initial sepsis screen is negative. Risk Assessment: Do you want to hurt yourself or someone else? Patient reports no desire to harm self or others. Onset of symptoms was September 27, 2023. 14:51 Method Of Arrival: Ambulatory iw 14:51 Acuity: VANIA 4 iw Historical: - Allergies: 14:50 No Known Allergies; iw - PMHx: 14:50 Hypertensive disorder; iw - Immunization history:: Adult Immunizations up to date. - Family history:: not pertinent. - Social history:: Smoking status: Patient denies any tobacco usage or history of. - Hospitalizations: : No recent hospitalization is reported. Screenin:15 [facility] ED Fall Risk Assessment (Adult) History of falling in the last 3 months, tm6 including since admission Yes- single mechanical fall (1 pt) Confusion or Disorientation No (0 pts) Intoxicated or Sedated No (0 pts) Impaired Gait No (0 pts) Mobility Assist Device Used No (0 pt) Altered Elimination No (0 pt) Score/Fall Risk Level 0 - 2 = Low Risk. Abuse screen: Denies threats or abuse. Denies injuries from another. Nutritional screening: No deficits noted. Tuberculosis screening: No symptoms or risk factors identified. Assessment: 15:15 General: Appears in no apparent distress. comfortable, Behavior is calm, cooperative, tm6 appropriate for age. Pain: Denies pain. Neuro: Level of Consciousness is awake, alert, obeys commands, Oriented to person, place, time, situation. Cardiovascular: Capillary refill < 3 seconds Patient's skin is warm and dry. Respiratory: Airway is patent Respiratory effort is even, unlabored, Respiratory pattern is regular, symmetrical. GI: Abdomen is flat. : No signs and/or symptoms were reported regarding the genitourinary system. EENT: No signs and/or symptoms were reported regarding the EENT system. Derm: No signs and/or symptoms reported regarding the dermatologic system. Derm: No signs and/or symptoms reported regarding the dermatologic system. Skin laceration above right eye. Injury Description: Laceration sustained to right eye no active bleeding noted at this time. 16:12 Reassessment: Patient appears in no apparent distress at this time. tm6 Vital Signs: 14:50 BP 123 / 86; Pulse 91; Resp 16; Temp 98.4; Pulse Ox 100% on R/A; Weight 47.63 kg; iw Height 5 ft. 6 in. ; 15:15 BP 150 / 85; Pulse 86; Pulse Ox 100% ; tm6 14:50 Body Mass Index 16.95 (47.63 kg, 167.64 cm) iw ED Course: 14:44 Patient arrived in ED. im 14:49 Goldy Hooepr MD is Attending Physician. rn 14:50 Arm band placed on. iw 14:51 Triage completed. iw 14:55 Keyla Morgan, RYLEE is Primary Nurse. ld1 15:12 CT Head Brain wo Cont In Process Unspecified. EDMS 15:15 Patient has correct armband on for positive identification. Bed in low position. Call tm6 light in reach. Side rails up X2. Provided Education on: wound cleaning. Client placed on continuous cardiac and pulse oximetry monitoring. NIBP monitoring applied. Door closed. Noise minimized. 15:15 Assist provider with laceration repair. tm6 16:12 Patient did not have IV access during this emergency room visit. tm6 Administered Medications: 15:52 Drug: Lidocaine Infiltration (2 %) 1 vials 5 ml Infiltration once; to bedside Volume: 5 tm6 ml; Route: Infiltration; Medication: 15:15 VIS not applicable for this client. tm6 Outcome: 16:02 Discharge ordered by . rn 16:12 Discharged to home ambulatory, tm6 16:12 Condition: stable 16:12 Discharge instructions given to patient, Instructed on discharge instructions, Demonstrated understanding of instructions, 16:12 Patient left the ED. tm6 Signatures: Dispatcher [employer] Gemini De La Garza, RYLEE MCKEE Goldy Hooper MD MD rn Sims, Lauren, RN RN ld1 Sue Corea Tawney, RN RN tm6
[2023-09-27 16:26] VITALS: TEMP 98.4; O2SAT 100
[2023-09-27 16:28] VITALS: BP 150/85
== END 2023-09-27 16:12 | disposition home or self-care (01) ==
LOC: ER 14:40
PROC: 0HQ1XZZ Repair Face Skin, External Approach (ICD-10-PCS; principal; 2023-09-27)
DX: S01.81XA Laceration without foreign body of other part of head, initial encounter (principal); I10 Essential (primary) hypertension
CPT/HCPCS: 70450; 99284; 12013; J2001